=== PATIENT | male | born 1960 | race Caucasian/White ===

== ENCOUNTER 2016-10-21 05:54 | Emergency (ER) | payer BC ==
[~2016-10-21] VITALS: Ht 180.3 cm; Wt 92.5 kg
[~2016-10-21 05:54] MED LIST: DEXILANT60 MG PO; FLEXERIL10 MG PO; MEN 50 PLUS MU1 EACH PO; MOTRIN800 MG PO; NOHOMEMEDS; NORCO 10/3251 TABLET PO; VOLTAREN75 MG PO
[2016-10-21] MEDS ORDERED: COLACE100 MG PO (06:21)
[2016-10-21] MEDS ORDERED: ANUSOL-HC21 GM PR (06:21)
[2016-10-21 06:31] VITALS: BP 128/91
[2016-10-23] MEDS ORDERED: DEXILANT30 MG PO (14:57)
== END 2016-10-21 06:31 | disposition home or self-care (01) ==
LOC: EME 05:54
DX: K64.9 Unspecified hemorrhoids (principal)
CPT/HCPCS: 99281; 99283

== ENCOUNTER 2016-10-28 07:16 | Day surgery (SDC) | payer BC ==
[~2016-10-28] VITALS: Ht 180.3 cm; Wt 90.7 kg
[~2016-10-28 07:16] MED LIST changes: +ANUSOL-HC21 GM PR; +COLACE100 MG PO; +DEXILANT30 MG PO
[2016-10-28 07:37] VITALS: BP 150/93
[2016-10-28 07:53] LABS: BASOPHIL COUNT 0.1 K/uL (0-0.1); EOSINOPHIL (%) 2.6 % (0-5); EOSINOPHIL COUNT 0.2 K/uL (0-0.3); HEMATOCRIT 45.3 % (38.0-50.0); IMMATURE GRANULOCYTE (%) 0.5 % (0.0-0.7); LYMPHOCYTE COUNT 1.8 K/uL (1.0-2.8); MCH 29.2 PG (29.0-34.0); MCHC 35.5 G/DL (30.0-36.0); MCV 82.1 FL (86-99); MEAN PLAT.VOLUME 9.9 uM^3 (9.0-12.4); MONOCYTE (%) 8.9 % (3-12); MONOCYTE COUNT 0.8 K/uL (0-0.8); NEUTROPHIL (%) 66.4 % (45-76); NEUTROPHIL COUNT 5.7 K/uL (1.8-6.4); PLATELET COUNT 160 K/uL (156-360); RBC DIS.WIDTH-CV 13.9 % (11.8-14.6); RBC DIS.WIDTH-SD 41.5 % (39-53); RED BLOOD COUNT 5.52 M/uL (4.00-5.50); WHITE BLOOD COUNT 8.5 K/uL (4.1-10.2)
[2016-10-28 08:14] LABS: ANION GAP 5 MEQ/L (2-14); CHLORIDE 106 MEQ/L (99-109); POTASSIUM 4.3 MEQ/L (3.7-5.4); SAMPLE HEMOLYSIS CHECK 0; SAMPLE ICTERIC CHECK 0; SAMPLE LIPEMIA CHECK 0; SODIUM 141 MEQ/L (136-147); TOTAL BILIRUBIN 1.1 MG/DL (0.0-1.0)
[2016-10-28 08:16] LABS: PROTHROMBIN TIME 10.3 (9.2-11.2)
[2016-10-28 08:20] LABS: ALKALINE PHOSPHATASE 64 IU/L (3-129); GFR ESTIMATE (CALCULATED) > 59 mL/min/; GLUCOSE 106 mg/dL (70-99); UREA NITROGEN (BUN) 14 mg/dL (9-23)
[2016-10-28 13:36] VITALS: BP 157/86
[2016-10-28 14:22] VITALS: BP 124/89
== END 2016-10-28 14:20 | disposition home or self-care (01) ==
LOC: SDC 07:16
PROVIDERS: Thoracic Surgery (Cardiothoracic Vascular Surgery)
DX: K64.5 Perianal venous thrombosis (principal); K64.8 Other hemorrhoids; M19.90 Unspecified osteoarthritis, unspecified site; K21.9 Gastro-esophageal reflux disease without esophagitis
CPT/HCPCS: 80053; 85025; 85610; 88304; J0330; J0690; J1100; J1170; J1885; J2175; J2405; J3010

== ENCOUNTER 2017-02-22 19:16 | Emergency (ER) | payer BC ==
[~2017-02-22] VITALS: Ht 177.8 cm; Wt 113.0 kg
[2017-02-22] MEDS ORDERED: VALIUM5 MG PO (21:27)
[2017-02-22] MEDS ORDERED: PERCOCET 5/31 TABLET PO (21:27)
[2017-02-22 22:13] VITALS: BP 124/87
== END 2017-02-22 22:13 | disposition home or self-care (01) ==
LOC: EME 19:16
DX: M62.830 Muscle spasm of back (principal); S39.012A Strain of muscle, fascia and tendon of lower back, initial encounter; X50.9XXA Other and unspecified overexertion or strenuous movements or postures, initial encounter; Y93.89 Activity, other specified; F17.200 Nicotine dependence, unspecified, uncomplicated
CPT/HCPCS: 99281; 99283; J2270

== ENCOUNTER 2017-08-02 09:28 | Emergency (ER) | payer BC ==
[~2017-08-02] VITALS: Ht 177.8 cm; Wt 92.3 kg
[~2017-08-02 09:28] MED LIST changes: +PERCOCET 5/31 TABLET PO; +VALIUM5 MG PO
[2017-08-02] MEDS ORDERED: PERCOCET 5/31 TABLET PO (12:29)
[2017-08-02] MEDS ORDERED: FLEXERIL10 MG PO (12:29)
[2017-08-02 13:19] VITALS: BP 132/88
== END 2017-08-02 13:21 | disposition home or self-care (01) ==
LOC: EME 09:28
DX: S39.012A Strain of muscle, fascia and tendon of lower back, initial encounter (principal); X50.1XXA Overexertion from prolonged static or awkward postures, initial encounter; K21.9 Gastro-esophageal reflux disease without esophagitis; Z88.6 Allergy status to analgesic agent
CPT/HCPCS: 99281; 99284; J2270